=== PATIENT | female | born 1935 | race Caucasian/White ===

== ENCOUNTER 2020-09-16 11:33 | Inpatient (IN) | payer MEDICARE, OTHER ==
[~2020-09-16] VITALS: Ht 175.3 cm; Wt 93.6 kg
[2020-09-16] VITALS (13 sets, daily range): BP systolic 113–142; BP diastolic 41–77
[2020-09-16 12:40] LABS: BASOPHILS # (AUTO) 0.1 X10'3 (0-0.2); EOSINOPHILS % (AUTO) 0.3 % (0-6); LYMPHOCYTES # (AUTO) 0.9 X10'3 (1.1-4.8); LYMPHOCYTES % (AUTO) 13.7 % (21-51); MEAN CORPUSCULAR HEMOGLOBIN 25.5 PG (27.0-31.0); MEAN CORPUSCULAR HGB CONC 31.6 g/dL (33.0-36.5); MEAN CORPUSCULAR VOLUME 80.8 FL (78-98); MEAN PLATELET VOLUME 9.4 FL (7.4-10.4); MONOCYTES # (AUTO) 0.4 X10'3 (0-0.9); MONOCYTES % (AUTO) 6.7 % (2-12); NEUTROPHILS % (AUTO) 78.3 % (42-75); PLATELET COUNT 203 X10'3 (140-440); RED BLOOD COUNT 2.71 X10'6 (4.20-5.60); RED CELL DISTRIBUTION WIDTH 17.5 % (11.5-14.5); WHITE BLOOD COUNT 6.4 X10'3 (4.5-11.0)
[2020-09-16 12:48] LABS: HEMATOCRIT 21.9 % (35.0-45.0); HEMOGLOBIN 6.9 g/dl (12.0-16.0)
[2020-09-16 12:49] LABS: ALANINE AMINOTRANSFERASE 17 U/L (12-78); ALBUMIN 3.4 G/DL (3.4-5.0); ALBUMIN/GLOBULIN RATIO 0.9 (1.1-1.5); ALKALINE PHOSPHATASE 83 IU/L (46-116); ANION GAP 10 (8-16); ASPARTATE AMINO TRANSFERASE 14 U/L (10-37); BILIRUBIN,TOTAL 0.6 MG/DL (0.1-1.0); BLOOD UREA NITROGEN 31 MG/DL (7-18); BUN/CREATININE RATIO 23.8 (6.6-38.0); CALCIUM 9.1 MG/DL (8.5-10.1); CHLORIDE 103 MMOL/L (99-107); GLUCOSE 125 MG/DL (70-104); POTASSIUM 4.2 MMOL/L (3.5-5.1); SODIUM 138 MMOL/L (135-145); TOTAL CARBON DIOXIDE 25.4 MMOL/L (24-32); eGFR 39 ML/MIN
[2020-09-16] MEDS ORDERED: normal saline 1000ML IV soln IVB ONE (12:55)
[2020-09-16] MEDS ORDERED: pantoprazole 40 MG vial IV ONE (12:55)
[2020-09-16] MEDS ORDERED: pantoprazole 40MG/NS 100ML BAG 100 ML IV ONE (12:55)
[2020-09-16] MEDS ORDERED: magnesium 2GM in 50ml NS 50 ML IV PRN (13:20)
[2020-09-16] MEDS ORDERED: mag hydrox/Alum hydrox/simeth 30ml oral suspension PO PRN (13:20)
[2020-09-16] MEDS ORDERED: potassium Cl 20 mEq SR tablet PO PRN ×2 (13:20)
[2020-09-16] MEDS ORDERED: ondansetron/PF 4mg/2ml inj IV PRN (13:20)
[2020-09-16] MEDS ORDERED: potassium Cl 40MEQ/1/2NS 520ml 520 ML IV PRN ×2 (13:20)
[2020-09-16] MEDS ORDERED: acetaminophen 325mg tablet PO PRN (13:20)
[2020-09-16] MEDS ORDERED: PERFLUTREN PROTEIN-A MICROSPHR (Optison) 0.22 MG/ML 3ML VIAL IV ONE (13:20)
[2020-09-16] MEDS ORDERED: magnesium 4gm in 100ml NS 100 ML IV PRN (13:20)
[2020-09-16] MEDS ORDERED: RIVA20TA PO (13:47)
[2020-09-16] MEDS ORDERED: [UNRECOGNIZED DRUG - CODE] PO (13:47)
[2020-09-16] MEDS ORDERED: CALC600T35 PO (13:47)
[2020-09-16] MEDS ORDERED: DILT90TA22 PO (13:47)
[2020-09-16] MEDS ORDERED: ATOR20TA PO (13:47)
[2020-09-16] MEDS ORDERED: CHOL100062 PO (13:47)
[2020-09-16] MEDS ORDERED: LISI20TA28 PO (13:47)
[2020-09-16] MEDS ORDERED: OMEP40CA21 PO (13:47)
--- NOTE | 2020-09-16 15:12 | NUR ---
PATIENT AT THIS TIME ARRIVED FROM ER, PATIENT [id number] STABLE NO SIGNS OF DISTRESS 2L NC ON SAT AT 100%, PATIENT ALSO HAS BILATERAL HEARING AIDS, NO OTHE RNEEDS AT THIS TIME.
--- NOTE | 2020-09-16 15:41 | NUR ---
PAGER ID: [phone] MESSAGE: Patient Niels Schulz new admit in room 316 in [place] needs a Blood consent to be signed so she can start getting her unit of bloods , Caridad COLÓN
[2020-09-16] MEDS ORDERED: LISI-790 PO (16:07)
--- NOTE | 2020-09-16 18:18 | NUR ---
REPORT GIVEN TO ALONSO, ALSO TRANSFERM OF BLOOD TRANSFUSION HAS PATIENT GETTING TRANSFUSED AT THIS TIME.
--- NOTE | 2020-09-16 18:30 | NUR ---
Patient in room MED 316. I have received report from MARY COLÓN and had the opportunity to ask questions and assume patient care.
[2020-09-16] MEDS: pantoprazole 40MG/NS 100ML BAG 100 ML IV SCH (18:56)
[2020-09-16] MEDS: K and/or MAG REPLACEMENT MC SCH (20:00)
[2020-09-16] MEDS: docusate sod 100mg capsule PO SCH (20:00)
[2020-09-16] MEDS: atorvastatin 20mg tablet PO SCH (20:13)
[2020-09-16 21:27] LABS: HEMATOCRIT 23.2 % (35.0-45.0); HEMOGLOBIN 7.5 g/dl (12.0-16.0); MEAN CORPUSCULAR HEMOGLOBIN 26.8 PG (27.0-31.0); MEAN CORPUSCULAR HGB CONC 32.4 g/dL (33.0-36.5); MEAN CORPUSCULAR VOLUME 82.7 FL (78-98); MEAN PLATELET VOLUME 9.5 FL (7.4-10.4); PLATELET COUNT 156 X10'3 (140-440); RED CELL DISTRIBUTION WIDTH 18.1 % (11.5-14.5); WHITE BLOOD COUNT 5.6 X10'3 (4.5-11.0)
[2020-09-17] VITALS (15 sets, daily range): BP systolic 112–150; BP diastolic 54–86
[2020-09-17] MEDS: pantoprazole 40MG/NS 100ML BAG 100 ML IV SCH ×3 (00:29→22:20)
--- NOTE | 2020-09-17 02:16 | NUR ---
IV INFILTRATED, NEEDED TO REESTABLISH ACCESS-NEW IV STARTED NOW LEFT FOREARM, RESUMING BLOOD TRANSFUSION. ALEX COLÓN
--- NOTE | 2020-09-17 06:04 | NUR ---
Problems reprioritized. Patient report given, questions answered & plan of care reviewed with MAXI COLÓN.
[2020-09-17 06:14] LABS: HEMATOCRIT 23.7 % (35.0-45.0); HEMOGLOBIN 7.8 g/dl (12.0-16.0); MEAN CORPUSCULAR HEMOGLOBIN 26.9 PG (27.0-31.0); MEAN CORPUSCULAR HGB CONC 32.8 g/dL (33.0-36.5); MEAN PLATELET VOLUME 9.3 FL (7.4-10.4); PLATELET COUNT 137 X10'3 (140-440); RED BLOOD COUNT 2.89 X10'6 (4.20-5.60); RED CELL DISTRIBUTION WIDTH 17.5 % (11.5-14.5); WHITE BLOOD COUNT 5.4 X10'3 (4.5-11.0)
--- NOTE | 2020-09-17 06:30 | NUR ---
Patient in room MED 316. I have received report from KATARZYNA GUPTA and had the opportunity to ask questions and assume patient care.
[2020-09-17 06:46] LABS: ALANINE AMINOTRANSFERASE 13 U/L (12-78); ALBUMIN 2.8 G/DL (3.4-5.0); ALBUMIN/GLOBULIN RATIO 0.9 (1.1-1.5); ALKALINE PHOSPHATASE 68 IU/L (46-116); ANION GAP 9 (8-16); ASPARTATE AMINO TRANSFERASE 17 U/L (10-37); BLOOD UREA NITROGEN 23 MG/DL (7-18); BUN/CREATININE RATIO 19.7 (6.6-38.0); CALCIUM 8.2 MG/DL (8.5-10.1); CHLORIDE 106 MMOL/L (99-107); CREATININE 1.17 MG/DL (0.40-0.90); GLUCOSE 96 MG/DL (70-104); MAGNESIUM 1.3 MG/DL (1.5-2.4); POTASSIUM 4.1 MMOL/L (3.5-5.1); SODIUM 141 MMOL/L (135-145); TOTAL CARBON DIOXIDE 25.6 MMOL/L (24-32); TOTAL PROTEIN 5.8 G/DL (6.4-8.2); eGFR 44 ML/MIN
[2020-09-17] MEDS ORDERED: fentaNYL/PF 50MCG/1 ML 2ML syringe ONE (08:00)
[2020-09-17] MEDS: K and/or MAG REPLACEMENT MC SCH ×2 (08:00→20:00)
[2020-09-17] MEDS ORDERED: LIDOcaine Viscous 15ml cup ONE (08:00)
[2020-09-17] MEDS: calcium carbonate 500mg chew tablet PO SCH (08:00)
[2020-09-17] MEDS ORDERED: MIDAZolam 1 MG/ML 5ML VIAL ONE (08:00)
[2020-09-17 12:10] LABS: HEMATOCRIT 25.6 % (35.0-45.0); HEMOGLOBIN 8.2 g/dl (12.0-16.0); MEAN CORPUSCULAR HEMOGLOBIN 26.4 PG (27.0-31.0); MEAN CORPUSCULAR HGB CONC 32.1 g/dL (33.0-36.5); MEAN CORPUSCULAR VOLUME 82.5 FL (78-98); MEAN PLATELET VOLUME 9.5 FL (7.4-10.4); PLATELET COUNT 148 X10'3 (140-440); RED BLOOD COUNT 3.11 X10'6 (4.20-5.60); RED CELL DISTRIBUTION WIDTH 17.7 % (11.5-14.5); WHITE BLOOD COUNT 6.2 X10'3 (4.5-11.0)
[2020-09-17] MEDS: cholecalciferol (vitamin D3) 1,000 unit (25mcg) tablet PO SCH (14:04)
[2020-09-17] MEDS: docusate sod 100mg capsule PO SCH ×2 (14:04→20:27)
[2020-09-17] MEDS: lisinopril 5mg tablet PO SCH (14:04)
[2020-09-17] MEDS: diltiazem CD 180mg cap (once-daily) PO SCH (14:05)
--- NOTE | 2020-09-17 18:15 | NUR ---
Problems reprioritized. Patient report given, questions answered & plan of care reviewed with kimberlee whipple.
--- NOTE | 2020-09-17 18:17 | NUR ---
Patient in room MED 316. I have received report from Cristy mohan and had the opportunity to ask questions and assume patient care.
[2020-09-17 20:15] LABS: HEMATOCRIT 28.5 % (35.0-45.0); HEMOGLOBIN 9.2 g/dl (12.0-16.0); MEAN CORPUSCULAR HEMOGLOBIN 27.1 PG (27.0-31.0); MEAN CORPUSCULAR HGB CONC 32.4 g/dL (33.0-36.5); MEAN CORPUSCULAR VOLUME 83.8 FL (78-98); MEAN PLATELET VOLUME 9.1 FL (7.4-10.4); PLATELET COUNT 189 X10'3 (140-440); RED CELL DISTRIBUTION WIDTH 18.4 % (11.5-14.5); WHITE BLOOD COUNT 7.9 X10'3 (4.5-11.0)
[2020-09-17] MEDS: atorvastatin 20mg tablet PO SCH (20:27)
[2020-09-18 02:00] VITALS: BP 108/51
[2020-09-18] MEDS: pantoprazole 40MG/NS 100ML BAG 100 ML IV SCH (04:21)
[2020-09-18 06:00] VITALS: BP 116/52
--- NOTE | 2020-09-18 06:05 | NUR ---
Problems reprioritized. Patient report given, questions answered & plan of care reviewed with MAXI COLÓN.
--- NOTE | 2020-09-18 06:20 | NUR ---
Patient in room MED 316. I have received report from kimberlee whipple and had the opportunity to ask questions and assume patient care.
[2020-09-18 06:52] LABS: HEMATOCRIT 24.8 % (35.0-45.0); HEMOGLOBIN 7.9 g/dl (12.0-16.0); MEAN CORPUSCULAR HEMOGLOBIN 26.5 PG (27.0-31.0); MEAN CORPUSCULAR HGB CONC 31.9 g/dL (33.0-36.5); MEAN CORPUSCULAR VOLUME 82.8 FL (78-98); MEAN PLATELET VOLUME 9.3 FL (7.4-10.4); PLATELET COUNT 162 X10'3 (140-440); RED BLOOD COUNT 2.99 X10'6 (4.20-5.60); RED CELL DISTRIBUTION WIDTH 18.1 % (11.5-14.5); WHITE BLOOD COUNT 6.1 X10'3 (4.5-11.0)
[2020-09-18 07:20] LABS: ALANINE AMINOTRANSFERASE 18 U/L (12-78); ALBUMIN 2.8 G/DL (3.4-5.0); ALBUMIN/GLOBULIN RATIO 0.9 (1.1-1.5); ALKALINE PHOSPHATASE 71 IU/L (46-116); ANION GAP 8 (8-16); ASPARTATE AMINO TRANSFERASE 21 U/L (10-37); BILIRUBIN,TOTAL 1.1 MG/DL (0.1-1.0); BLOOD UREA NITROGEN 15 MG/DL (7-18); BUN/CREATININE RATIO 12.5 (6.6-38.0); CALCIUM 7.7 MG/DL (8.5-10.1); CHLORIDE 106 MMOL/L (99-107); GLUCOSE 96 MG/DL (70-104); MAGNESIUM 2.4 MG/DL (1.5-2.4); POTASSIUM 4.3 MMOL/L (3.5-5.1); SODIUM 139 MMOL/L (135-145); TOTAL CARBON DIOXIDE 25.4 MMOL/L (24-32); eGFR 43 ML/MIN
[2020-09-18] MEDS: diltiazem CD 180mg cap (once-daily) PO SCH (08:56)
[2020-09-18] MEDS: docusate sod 100mg capsule PO SCH (08:56)
[2020-09-18] MEDS: cholecalciferol (vitamin D3) 1,000 unit (25mcg) tablet PO SCH (08:56)
[2020-09-18] MEDS: lisinopril 5mg tablet PO SCH (08:57)
[2020-09-18] MEDS: calcium carbonate 500mg chew tablet PO SCH (08:57)
[2020-09-18] MEDS: K and/or MAG REPLACEMENT MC SCH (08:58)
[2020-09-18 10:28] LABS: HEMATOCRIT 26.5 % (35.0-45.0); HEMOGLOBIN 8.5 g/dl (12.0-16.0); MEAN CORPUSCULAR HEMOGLOBIN 26.7 PG (27.0-31.0); MEAN CORPUSCULAR HGB CONC 32.3 g/dL (33.0-36.5); MEAN CORPUSCULAR VOLUME 82.9 FL (78-98); MEAN PLATELET VOLUME 9.2 FL (7.4-10.4); PLATELET COUNT 179 X10'3 (140-440); RED BLOOD COUNT 3.19 X10'6 (4.20-5.60); RED CELL DISTRIBUTION WIDTH 18.4 % (11.5-14.5)
[2020-09-18 11:00] VITALS: BP 100/45
[2020-09-18] MEDS ORDERED: OMEP40CA21 PO (11:24)
[2020-09-18 15:00] VITALS: BP 108/60
--- NOTE | 2020-09-18 16:15 | NUR ---
reviewed all discharge instructions with pt and daughter, including CBC in 2 days, and again weekly, ` f/u with dr. rao, stop taking xaralto if any rectal bleeding, s.l dc'd from [facility],site clear, pt dc'd via wheelchair,with all belongings
== END 2020-09-18 15:20 | disposition home or self-care (01) | DRG 378 ==
LOC: ER 11:33 → ED HOLD 13:16 → MED 3N 14:25
PROVIDERS: ADMIT Family Medicine; ATTEND Family Medicine
PROC: 30233N1 Transfusion of Nonautologous Red Blood Cells into Peripheral Vein, Percutaneous Approach (ICD-10-PCS; 2020-09-16)
PROC: 0DB68ZX Excision of Stomach, Via Natural or Artificial Opening Endoscopic, Diagnostic (ICD-10-PCS; principal; 2020-09-17)
DX: K29.71 Gastritis, unspecified, with bleeding (principal); I48.20 Chronic atrial fibrillation, unspecified; N17.9 Acute kidney failure, unspecified; K57.11 Diverticulosis of small intestine without perforation or abscess with bleeding; D64.9 Anemia, unspecified; R19.5 Other fecal abnormalities; E78.5 Hyperlipidemia, unspecified; I07.1 Rheumatic tricuspid insufficiency; Z96.651 Presence of right artificial knee joint; I12.9 Hypertensive chronic kidney disease with stage 1 through stage 4 chronic kidney disease, or unspecified chronic kidney disease; K31.7 Polyp of stomach and duodenum; N18.9 Chronic kidney disease, unspecified; J44.9 Chronic obstructive pulmonary disease, unspecified; Z83.3 Family history of diabetes mellitus; Z79.01 Long term (current) use of anticoagulants; Z87.11 Personal history of peptic ulcer disease; Z87.891 Personal history of nicotine dependence; Z95.3 Presence of xenogenic heart valve; Z88.8 Allergy status to other drugs, medicaments and biological substances; Z88.5 Allergy status to narcotic agent; Z79.899 Other long term (current) drug therapy; Z98.42 Cataract extraction status, left eye; Z98.41 Cataract extraction status, right eye; Z82.49 Family history of ischemic heart disease and other diseases of the circulatory system
CPT/HCPCS: 36415; 36430; 43239; 71045; 80053; 83735; 83880; 84484; 85025; 85027; 86885; 86900; 86901; 86920; 93005; 93306; 96375; 97116; 97162; 97530; 99152; 99285; A4620; C9113; G0378; J2250; J3010; J3475; J7030; J7040; P9016

== ENCOUNTER 2021-03-12 17:13 | Observation (INO) | payer MEDICARE, OTHER ==
[~2021-03-12] VITALS: Ht 175.3 cm; Wt 87.7 kg
[~2021-03-12 17:13] MED LIST: ATOR20TA PO; DILT180C66 PO; FERR325T29 PO; LISI5TAB22 PO; PANT-47 PO; QUELT PO; SUCR1TAB34 PO
[2021-03-12] MEDS ORDERED: methylPREDNISolone sod succ 125mg/2ml vial IV ONE (17:20)
[2021-03-12] MEDS ORDERED: diphenhydrAMINE 50 mg/ml inj IV ONE (17:20)
[2021-03-12] MEDS ORDERED: dexamethasone sod phosphate 10mg/ml inj IV STA (17:20)
[2021-03-12] MEDS ORDERED: epiNEPHrine 1 mg/ml inj SQ ONE (17:20)
[2021-03-12] MEDS ORDERED: famotidine/PF 10 mg/ml inj IV ONE (17:20)
[2021-03-12] MEDS ORDERED: racepinephrine 11.25mg/0.5ml nebule IH ONE (17:40)
--- NOTE | 2021-03-12 17:54 | NUR ---
PATIENT SITTING UP IN BED, TALKING ON PHONE, RT AT BEDSIDE TO ADMINISTER BREATHING TREATMENT PER MD ORDER.
--- NOTE | 2021-03-12 18:44 | NUR ---
PATIENT SITTING UP IN BED, A/O X4, TALKING AND CALM AT THIS TIME.
[2021-03-12] MEDS ORDERED: ondansetron/PF 4mg/2ml inj IV PRN (20:30)
[2021-03-12] MEDS ORDERED: CALC-729 PO (20:30)
[2021-03-12] MEDS ORDERED: MV-M1TAB19 PO (20:32)
[2021-03-12] MEDS ORDERED: MELA5TAB12 PO (20:33)
[2021-03-12] MEDS ORDERED: LUTE1CAP4 PO (20:35)
[2021-03-12] MEDS ORDERED: ASCO500T19 PO (20:37)
[2021-03-12] MEDS ORDERED: VITA400T10 PO (20:37)
[2021-03-12] MEDS ORDERED: PANT40TA54 PO (20:47)
[2021-03-12] MEDS ORDERED: SUCR1TAB PO (20:47)
[2021-03-12 20:53] LABS: BASOPHILS % (AUTO) 0.4 % (0-1); EOSINOPHILS % (AUTO) 0 % (0-6); HEMATOCRIT 39.9 % (35.0-45.0); LYMPHOCYTES # (AUTO) 0.3 X10'3 (1.1-4.8); LYMPHOCYTES % (AUTO) 2.4 % (21-51); MEAN CORPUSCULAR HEMOGLOBIN 29.9 PG (27.0-31.0); MEAN CORPUSCULAR HGB CONC 32.6 g/dL (33.0-36.5); MEAN CORPUSCULAR VOLUME 91.8 FL (78-98); MEAN PLATELET VOLUME 8.6 FL (7.4-10.4); MONOCYTES % (AUTO) 0.4 % (2-12); NEUTROPHILS # (AUTO) 10.6 X10'3 (1.8-7.7); NEUTROPHILS % (AUTO) 96.8 % (42-75); PLATELET COUNT 192 X10'3 (140-440); RED BLOOD COUNT 4.35 X10'6 (4.20-5.60); RED CELL DISTRIBUTION WIDTH 15.9 % (11.5-14.5); WHITE BLOOD COUNT 10.9 X10'3 (4.5-11.0)
[2021-03-12] MEDS ORDERED: Melatonin 3mg tablet PO SCH (21:00)
[2021-03-12 21:11] LABS: ALANINE AMINOTRANSFERASE 20 U/L (12-78); ALBUMIN 3.7 G/DL (3.4-5.0); ALBUMIN/GLOBULIN RATIO 0.9 (1.1-1.5); ALKALINE PHOSPHATASE 110 IU/L (46-116); ANION GAP 15 (8-16); ASPARTATE AMINO TRANSFERASE 24 U/L (10-37); BILIRUBIN,TOTAL 1.1 MG/DL (0.1-1.0); BLOOD UREA NITROGEN 25 MG/DL (7-18); BUN/CREATININE RATIO 20.8 (6.6-38.0); CALCIUM 9.9 MG/DL (8.5-10.1); CHLORIDE 102 MMOL/L (99-107); GLUCOSE 162 MG/DL (70-104); POTASSIUM 3.9 MMOL/L (3.5-5.1); SODIUM 140 MMOL/L (135-145); TOTAL CARBON DIOXIDE 23.1 MMOL/L (24-32); TOTAL PROTEIN 7.7 G/DL (6.4-8.2); eGFR 43 ML/MIN
[2021-03-12] MEDS: diphenhydrAMINE 25mg capsule PO SCH (23:31)
[2021-03-13 00:58] LABS: BASOPHILS % (AUTO) 0.1 % (0-1); EOSINOPHILS % (AUTO) 0 % (0-6); HEMATOCRIT 39.1 % (35.0-45.0); HEMOGLOBIN 12.8 g/dl (12.0-16.0); LYMPHOCYTES # (AUTO) 0.3 X10'3 (1.1-4.8); LYMPHOCYTES % (AUTO) 3.8 % (21-51); MEAN CORPUSCULAR HGB CONC 32.7 g/dL (33.0-36.5); MEAN CORPUSCULAR VOLUME 91.8 FL (78-98); MEAN PLATELET VOLUME 8.7 FL (7.4-10.4); MONOCYTES % (AUTO) 0.6 % (2-12); NEUTROPHILS # (AUTO) 7.6 X10'3 (1.8-7.7); NEUTROPHILS % (AUTO) 95.5 % (42-75); PLATELET COUNT 193 X10'3 (140-440); RED BLOOD COUNT 4.26 X10'6 (4.20-5.60); RED CELL DISTRIBUTION WIDTH 16.2 % (11.5-14.5); WHITE BLOOD COUNT 7.9 X10'3 (4.5-11.0)
[2021-03-13 01:13] LABS: ALBUMIN 3.6 G/DL (3.4-5.0); ALBUMIN/GLOBULIN RATIO 0.9 (1.1-1.5); ANION GAP 9 (8-16); BILIRUBIN,TOTAL 1.1 MG/DL (0.1-1.0); BLOOD UREA NITROGEN 24 MG/DL (7-18); BUN/CREATININE RATIO 22.4 (6.6-38.0); CALCIUM 9.7 MG/DL (8.5-10.1); CHLORIDE 102 MMOL/L (99-107); CREATININE 1.07 MG/DL (0.40-0.90); GLUCOSE 167 MG/DL (70-104); POTASSIUM 4.3 MMOL/L (3.5-5.1); SODIUM 137 MMOL/L (135-145); TOTAL CARBON DIOXIDE 26.1 MMOL/L (24-32); TOTAL PROTEIN 7.6 G/DL (6.4-8.2); eGFR 49 ML/MIN
[2021-03-13 01:14] LABS: ALANINE AMINOTRANSFERASE 24 U/L (12-78); ALKALINE PHOSPHATASE 108 IU/L (46-116); ASPARTATE AMINO TRANSFERASE 21 U/L (10-37)
[2021-03-13] MEDS ORDERED: diphenhydrAMINE 25mg capsule PO SCH (02:00)
[2021-03-13] MEDS: diphenhydrAMINE 25mg capsule PO SCH ×2 (06:39→07:23)
--- NOTE | 2021-03-13 06:53 | NUR ---
Patient in room ED 4. I have received report from ER Nurse and had the opportunity to ask questions and assume patient care.
[2021-03-13 07:41] VITALS: BP 142/87
[2021-03-13] MEDS ORDERED: methylPREDNISolone sod succ/PF 40mg inj. IV SCH (08:00)
[2021-03-13] MEDS ORDERED: non-formulary drug (Lutein/Zeaxanthin (Lutein-Zeaxanthin 25-5 Mg Sfgl) 1 EACH) PO SCH (08:00)
[2021-03-13] MEDS ORDERED: famotidine/PF 10 mg/ml inj IV SCH (08:00)
[2021-03-13] MEDS ORDERED: diltiazem CD 180mg cap (once-daily) PO SCH (08:00)
[2021-03-13] MEDS ORDERED: pantoprazole 40mg Tablet.DR PO SCH (08:00)
[2021-03-13] MEDS ORDERED: sucralfate 1 gm tablet PO SCH (08:00)
[2021-03-13] MEDS ORDERED: ferrous sulfate 325mg tablet PO SCH (08:00)
--- NOTE | 2021-03-13 10:21 | NUR ---
COVID swab completed and sent to lab
[2021-03-13 11:44] VITALS: BP 139/70
[2021-03-13] MEDS ORDERED: DIPH-423 PO (12:00)
[2021-03-13] MEDS ORDERED: PRED10TA23 PO (12:00)
[2021-03-13] MEDS ORDERED: FAMO20TA8 PO (12:00)
--- NOTE | 2021-03-13 12:50 | NUR ---
Patient discharged, was very worried about her car being towed out of the parking lot of [facility] and not willing to stay to complete her admit dart. Patient discharged, taken by to [facility]. All educations completed with verbal acknowledgement of understanding. 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 All belongings with patient and sent home. No medications in pharmacy from home. IVs were discontinued.
== END 2021-03-13 13:00 | disposition home or self-care (01) ==
LOC: ER 17:14 → ED HOLD 20:34 → MED 3N 03-13 07:00
PROVIDERS: ADMIT Internal Medicine; ATTEND Family Medicine
DX: T78.3XXA Angioneurotic edema, initial encounter (principal); Z20.822 Contact with and (suspected) exposure to COVID-19; I48.91 Unspecified atrial fibrillation; I12.9 Hypertensive chronic kidney disease with stage 1 through stage 4 chronic kidney disease, or unspecified chronic kidney disease; N18.9 Chronic kidney disease, unspecified; E78.00 Pure hypercholesterolemia, unspecified; Z90.710 Acquired absence of both cervix and uterus; Z79.899 Other long term (current) drug therapy
CPT/HCPCS: 36415; 71045; 80053; 85025; 87635; 94640; 94760; 96372; 96374; 96375; 96376; 99291; G0378; J0171; J1100; J2920; J2930; J3490; Q0163

== ENCOUNTER 2021-03-14 09:53 | Outpatient (CLI) | payer MEDICARE, OTHER ==
[~2021-03-14] VITALS: Ht 175.3 cm; Wt 87.1 kg
[~2021-03-14 09:53] MED LIST changes: +ASCO500T19 PO; +CALC-729 PO; +DIPH-423 PO; +FAMO20TA8 PO; -LISI5TAB22 PO; +LUTE1CAP4 PO; +MELA5TAB12 PO; -PANT-47 PO; +PANT40TA54 PO; +PRED10TA23 PO; -QUELT PO; +SUCR1TAB PO; -SUCR1TAB34 PO; +VITA400T10 PO
[2021-03-14] MEDS ORDERED: IODIXANOL 320 MG/ML INFUS..BTL 100ML IV ONE (10:49)
[2021-03-14] MEDS ORDERED: IODIXANOL 320 MG/ML INFUS..BTL 50ML IV ONE (10:49)
[2021-03-14] MEDS ORDERED: albuterol 2.5 MG/3 ML nebule NEB ONE (11:55)
[2021-03-14 13:00] LABS: ABG BASE EXCESS 1.2 mmol/L (-2.0-2.0); ABG HCO3 21.5 mmol/L (22.0-26.0); ABG OXYGEN SATURATION 97.7 % (94-97); ALLEN'S TEST POSITIVE; FCOHb 1.8 % (0.0-3.9); FO2Hb 95.9 % (94-97)
== END 2021-03-14 23:59 | disposition home or self-care (01) ==
LOC: RAD 09:53
PROVIDERS: ATTEND Internal Medicine Cardiovascular Disease
DX: K42.9 Umbilical hernia without obstruction or gangrene (principal); M51.36 Other intervertebral disc degeneration, lumbar region; M47.816 Spondylosis without myelopathy or radiculopathy, lumbar region; I70.8 Atherosclerosis of other arteries; I70.203 Unspecified atherosclerosis of native arteries of extremities, bilateral legs; M48.54XA Collapsed vertebra, not elsewhere classified, thoracic region, initial encounter for fracture; R91.1 Solitary pulmonary nodule; K44.9 Diaphragmatic hernia without obstruction or gangrene; M41.85 Other forms of scoliosis, thoracolumbar region; I70.0 Atherosclerosis of aorta; J43.2 Centrilobular emphysema; I25.10 Atherosclerotic heart disease of native coronary artery without angina pectoris; I51.7 Cardiomegaly; Z95.818 Presence of other cardiac implants and grafts
CPT/HCPCS: 36600; 71046; 71275; 74174; 82803; 85018; 94060; 94727; 94729; 94760; Q9967

== ENCOUNTER 2021-10-31 07:35 | Day surgery (SDC) | payer MEDICARE, OTHER ==
[~2021-10-31] VITALS: Ht 172.7 cm; Wt 90.1 kg
[~2021-10-31 07:35] MED LIST changes: -PRED10TA23 PO
[2021-10-31 07:54] VITALS: BP 137/72
[2021-10-31] MEDS ORDERED: LIDOcaine 1% 30ml preserv. free vial SQ STA (08:01)
[2021-10-31] MEDS ORDERED: albumin 25% 100mL bottle x 1 IV PRN (08:10)
[2021-10-31 08:51] VITALS: BP 124/67
[2021-10-31 09:06] VITALS: BP 113/73
[2021-10-31 09:20] VITALS: BP 123/67
[2021-10-31 09:36] VITALS: BP 137/57
[2021-10-31 09:46] VITALS: BP 124/73
[2021-10-31 09:51] LABS: GLUCOSE,BODY FLUID 100 MG/DL
[2021-10-31 09:52] LABS: LDH,BODY FLUID 95 U/L; TOTAL PROTEIN,BODY FLUID 3.2 G/DL
[2021-10-31 09:58] LABS: BFAPPEAR HAZY; BFCOLOR AMBER; BFVOLUME 60 ML
[2021-10-31 09:59] LABS: BF RBC COUNT 5750 /CU MM; BF WBC COUNT 500 /CU MM (0-1000)
[2021-10-31 11:52] LABS: BF MESOTHELIAL CELLS MODERATE; LYMPHOCYTES,BODY FLUID 52 %; MONOCYTES,BODY FLUID 43 %; NEUTROPHILS,BODY FLUID 5 %
== END 2021-10-31 10:00 | disposition home or self-care (01) ==
LOC: SSTAY O 07:35
PROVIDERS: ATTEND Radiology Vascular & Interventional Radiology
DX: R18.8 Other ascites (principal); I48.91 Unspecified atrial fibrillation; D64.9 Anemia, unspecified; Z90.710 Acquired absence of both cervix and uterus; Z88.8 Allergy status to other drugs, medicaments and biological substances; Z88.6 Allergy status to analgesic agent; Z79.899 Other long term (current) drug therapy; Z82.49 Family history of ischemic heart disease and other diseases of the circulatory system; Z83.3 Family history of diabetes mellitus; Z98.890 Other specified postprocedural states
CPT/HCPCS: 49083; 82945; 83615; 84157; 87070; 89051; J3490; A6258

== ENCOUNTER 2022-01-20 17:25 | Emergency (ER) | payer MEDICARE, OTHER ==
[~2022-01-20] VITALS: Ht 175.3 cm; Wt 72.0 kg
[~2022-01-20 17:25] MED LIST changes: +ASCO500C18 PO; -ASCO500T19 PO; -ATOR20TA PO; +ATOR20TA66 PO; +CHOL400T32 PO; +CIPR250T4 PO; -DILT180C66 PO; -DIPH-423 PO; -FAMO20TA8 PO; -FERR325T29 PO; +FURO40TA4 PO; +LACT10SO32 PO; -MELA5TAB12 PO; +METO-411 PO; +POTA-206 PO; +SPIR50TA5 PO; -SUCR1TAB PO; -VITA400T10 PO
[2022-01-20 17:59] LABS: BASOPHILS % (AUTO) 0.8 % (0-1); EOSINOPHILS % (AUTO) 0.9 % (0-6); HEMOGLOBIN 12.5 g/dl (12.0-16.0); LYMPHOCYTES # (AUTO) 0.5 X10'3 (1.1-4.8); LYMPHOCYTES % (AUTO) 10.7 % (21-51); MEAN CORPUSCULAR HEMOGLOBIN 30.5 PG (27.0-31.0); MEAN CORPUSCULAR VOLUME 92.3 FL (78-98); MONOCYTES # (AUTO) 0.5 X10'3 (0-0.9); MONOCYTES % (AUTO) 10.9 % (2-12); NEUTROPHILS # (AUTO) 3.8 X10'3 (1.8-7.7); NEUTROPHILS % (AUTO) 76.7 % (42-75); PLATELET COUNT 156 X10'3 (140-440); RED BLOOD COUNT 4.12 X10'6 (4.20-5.60); RED CELL DISTRIBUTION WIDTH 17.1 % (11.5-14.5)
[2022-01-20 18:15] LABS: ALANINE AMINOTRANSFERASE 11 U/L (12-78); ALBUMIN 3.2 G/DL (3.4-5.0); ALBUMIN/GLOBULIN RATIO 0.7 (1.1-1.5); ALKALINE PHOSPHATASE 98 IU/L (46-116); ANION GAP 8 (8-16); ASPARTATE AMINO TRANSFERASE 24 U/L (10-37); BILIRUBIN,TOTAL 2.1 MG/DL (0.1-1.0); BLOOD UREA NITROGEN 31 MG/DL (7-18); BUN/CREATININE RATIO 21.7 (6.6-38.0); CALCIUM 9.4 MG/DL (8.5-10.1); CHLORIDE 101 MMOL/L (99-107); CREATININE 1.43 MG/DL (0.40-0.90); GLUCOSE 118 MG/DL (70-104); SODIUM 138 MMOL/L (135-145); TOTAL CARBON DIOXIDE 29.2 MMOL/L (24-32); TOTAL PROTEIN 7.7 G/DL (6.4-8.2); eGFR 35 ML/MIN
[2022-01-20] MEDS ORDERED: TETanus/Pertussis (Acell)/Diphther VAC/PF (Tdap-Adult) 0.5ml syringe IMVAC ONE (19:55)
[2022-01-20 20:11] VITALS: BP 104/54
== END 2022-01-20 20:13 | disposition home or self-care (01) ==
LOC: ER 17:26
DX: S01.81XA Laceration without foreign body of other part of head, initial encounter (principal); S41.012A Laceration without foreign body of left shoulder, initial encounter; R55 Syncope and collapse; W18.39XA Other fall on same level, initial encounter; Y93.89 Activity, other specified; Y92.89 Other specified places as the place of occurrence of the external cause; Y99.8 Other external cause status
CPT/HCPCS: 12005; 12011; 36415; 70450; 71045; 72125; 80053; 83880; 84484; 85025; 90471; 90715; 93005; 99285; J7030; 12002; 12004; A6212; A6213

== ENCOUNTER 2022-04-06 18:03 | Inpatient (IN) | payer MEDICARE, OTHER ==
[~2022-04-06] VITALS: Ht 170.2 cm; Wt 79.5 kg
[~2022-04-06 18:03] MED LIST changes: +ASPI-611 PO; +CARV3.12 PO; -CIPR250T4 PO; -LACT10SO32 PO; -POTA-206 PO; +POTA-207 PO; -SPIR50TA5 PO
[2022-04-06] MEDS ORDERED: dextrose 5%-1/4 NS 250ml IV soln IV ONE (18:30)
[2022-04-06 19:13] LABS: BASOPHILS % (AUTO) 0.6 % (0-1); EOSINOPHILS % (AUTO) 0.2 % (0-6); LYMPHOCYTES # (AUTO) 0.6 X10'3 (1.1-4.8); NEUTROPHILS % (AUTO) 79.7 % (42-75); WHITE BLOOD COUNT 6.8 X10'3 (4.5-11.0)
[2022-04-06 19:15] LABS: LYMPHOCYTES % (AUTO) 8.5 % (21-51); MEAN PLATELET VOLUME 10.4 FL (7.4-10.4); MONOCYTES # (AUTO) 0.7 X10'3 (0-0.9); NEUTROPHILS # (AUTO) 5.4 X10'3 (1.8-7.7); PLATELET COUNT 155 X10'3 (140-440)
[2022-04-06 19:26] LABS: ALANINE AMINOTRANSFERASE 18 U/L (12-78); ALKALINE PHOSPHATASE 100 IU/L (46-116); ANION GAP 10 (8-16); ASPARTATE AMINO TRANSFERASE 41 U/L (10-37); BILIRUBIN,TOTAL 3.8 MG/DL (0.1-1.0); BLOOD UREA NITROGEN 69 MG/DL (7-18); BUN/CREATININE RATIO 19.3 (6.6-38.0); CALCIUM 9.4 MG/DL (8.5-10.1); CHLORIDE 95 MMOL/L (99-107); CREATININE 3.57 MG/DL (0.40-0.90); GLUCOSE 100 MG/DL (70-104); SODIUM 133 MMOL/L (135-145); eGFR 12 ML/MIN
[2022-04-06 19:30] LABS: ALBUMIN/GLOBULIN RATIO 0.7 (1.1-1.5); TOTAL PROTEIN 7.1 G/DL (6.4-8.2)
[2022-04-06 19:36] LABS: HEMATOCRIT 40.6 % (35.0-45.0); MEAN CORPUSCULAR VOLUME 84.6 FL (78-98); RED CELL DISTRIBUTION WIDTH 17.8 % (11.5-14.5)
[2022-04-06] MEDS ORDERED: normal saline 1000ML IV soln IVB ONE (19:45)
[2022-04-06] MEDS ORDERED: dextrose 5%-1/4 normal saline 1,000 ML IV ONE (19:50)
--- NOTE | 2022-04-06 20:44 | NUR ---
Warming measures initiated, IV fluid warmer, and Saloni Hugger
[2022-04-06] MEDS: normal saline 1000ml 1,000 ML IV SCH (21:50)
[2022-04-06] MEDS ORDERED: acetaminophen 325mg tablet PO PRN ×2 (21:50)
[2022-04-06] MEDS ORDERED: ondansetron/PF 4mg/2ml inj IV PRN (21:50)
[2022-04-06] MEDS ORDERED: magnesium hydroxide 30ml (MOM) UD suspension PO PRN (21:50)
[2022-04-06 22:05] LABS: APTT 31 SECONDS (22-32)
[2022-04-06] MEDS: NORepinephrine 8mg/ 250ml NS 250 ML IV PRN (23:05)
[2022-04-06] MEDS ORDERED: fentaNYL/PF 50MCG/1 ML 2ML syringe IV ONE (23:15)
--- NOTE | 2022-04-06 23:17 | NUR ---
Patient complaining of back pain 10/31. Message left for book editor, Dr. Moran. One time order of Fentanyl [address] Carvajal.
[2022-04-07] VITALS (10 sets, daily range): BP systolic 89–124; BP diastolic 41–57
[2022-04-07] MEDS ORDERED: LACT10SO3 PO (02:13)
[2022-04-07] MEDS ORDERED: ACET-1025 PO (02:13)
[2022-04-07] MEDS ORDERED: morphine 2 MG/ML inj. syringe IV PRN (02:30)
[2022-04-07] MEDS ORDERED: POTA-207 PO (02:58)
[2022-04-07] MEDS ORDERED: FURO-149 PO (02:58)
[2022-04-07] MEDS ORDERED: CARV3.12 PO (02:58)
[2022-04-07] MEDS ORDERED: ASPI-1071 PO (02:58)
[2022-04-07] MEDS ORDERED: ASCO-134 PO (02:59)
--- NOTE | 2022-04-07 03:53 | NUR ---
To ICU at 0353
[2022-04-07 04:08] LABS: BASOPHILS # (AUTO) 0.1 X10'3 (0-0.2); BASOPHILS % (AUTO) 0.5 % (0-1); EOSINOPHILS % (AUTO) 0 % (0-6); HEMATOCRIT 44.8 % (35.0-45.0); HEMOGLOBIN 14.1 g/dl (12.0-16.0); LYMPHOCYTES % (AUTO) 9.8 % (21-51); MEAN CORPUSCULAR HEMOGLOBIN 27.3 PG (27.0-31.0); MEAN CORPUSCULAR HGB CONC 31.6 g/dL (33.0-36.5); MEAN CORPUSCULAR VOLUME 86.6 FL (78-98); MEAN PLATELET VOLUME 10.2 FL (7.4-10.4); MONOCYTES # (AUTO) 1.7 X10'3 (0-0.9); MONOCYTES % (AUTO) 17.2 % (2-12); NEUTROPHILS % (AUTO) 72.5 % (42-75); PLATELET COUNT 167 X10'3 (140-440); RED BLOOD COUNT 5.17 X10'6 (4.20-5.60); RED CELL DISTRIBUTION WIDTH 18.7 % (11.5-14.5); WHITE BLOOD COUNT 9.7 X10'3 (4.5-11.0)
[2022-04-07 04:10] LABS: CLARITY,URINE CLOUDY (Clear); GLUCOSE, URINE 100 mg/dl (Neg); KETONES,URINE 15 mg/dl (Neg); LEUKOCYTE ESTERASE ,URINE MODERATE (Neg); NITRITES, URINE POSITIVE (Neg); OCCULT BLOOD,URINE LARGE (Neg); PROTEIN,URINE 100 mg/dl (Neg)
[2022-04-07 04:19] LABS: UA COLLECTION TYPE FOLEY CATH
[2022-04-07 04:20] LABS: COLOR,URINE AMBER (Yellow)
[2022-04-07 04:23] LABS: BACTERIA,URINE 4+ /HPF (Neg); SQUAMOUS EPITHELIAL CELL,UR FEW /LPF (FEW); TRANSITIONAL EPI CELLS,URINE FEW /HPF; WBC CLUMPS,URINE FEW /HPF (NEGATIVE); WBC,URINE 30-50 /HPF (0-4)
[2022-04-07 04:24] LABS: ALANINE AMINOTRANSFERASE 15 U/L (12-78); ALBUMIN 2.9 G/DL (3.4-5.0); ALKALINE PHOSPHATASE 98 IU/L (46-116); ANION GAP 15 (8-16); ASPARTATE AMINO TRANSFERASE 33 U/L (10-37); BLOOD UREA NITROGEN 70 MG/DL (7-18); BUN/CREATININE RATIO 18.5 (6.6-38.0); CALCIUM 9.1 MG/DL (8.5-10.1); CHLORIDE 95 MMOL/L (99-107); CREATININE 3.79 MG/DL (0.40-0.90); GLUCOSE 91 MG/DL (70-104); MAGNESIUM 2.2 MG/DL (1.5-2.4); SODIUM 134 MMOL/L (135-145); TOTAL CARBON DIOXIDE 23.6 MMOL/L (24-32); eGFR 11 ML/MIN
[2022-04-07] MEDS: NORepinephrine 8mg/ 250ml NS 250 ML IV PRN ×2 (04:44→07:49)
[2022-04-07] MEDS: normal saline 1000ml 1,000 ML IV SCH (04:45)
--- NOTE | 2022-04-07 04:50 | NUR ---
Spoke with Dr. Moran regarding pt's pain and BP. He changed her morphine orders. Will send a lactate and TSH level. He did not want to give anymore fluid at this time given her high BP. Aware she is on 0.5mcg/kg/min of norepi with a severely stenotic AoV. He would like cardiology to see her before changing anything in terms of her BP control.
[2022-04-07 04:51] LABS: ALBUMIN/GLOBULIN RATIO 0.7 (1.1-1.5); PHOSPHORUS 6.5 MG/DL (2.3-4.5); TOTAL PROTEIN 6.8 G/DL (6.4-8.2)
[2022-04-07] MEDS: morphine 2 MG/ML inj. syringe IV PRN ×2 (05:07→10:02)
[2022-04-07 05:38] LABS: OXYGEN SATURATION (MIXED VEN) 56.2 % (60-80); PO2 MIXED VENOUS (TEMP COR) 32.4 mmHg (35-46)
--- NOTE | 2022-04-07 06:04 | NUR ---
Called Dr. Moran back with lab results. high lactate, high TSH, low mixed venous. He is going to add some antibiotic coverage because he thinks she may be in early sepsis and will order a CT of the abdomen for later in the day.
[2022-04-07] MEDS ORDERED: albumin (human) 25% 100ml IV 100 ML in dextrose 5% water 500ml 400 ML IV ONE (06:20)
[2022-04-07 07:12] LABS: LIPASE 140 U/L (73-393)
[2022-04-07] MEDS ORDERED: albumin (human) 25% 100ml IV 0 ML IV ONE (07:52)
[2022-04-07] MEDS ORDERED: heparin, porcine 5000 units/ml vial SQ SCH (08:00)
[2022-04-07] MEDS ORDERED: piperacillin/tazo 3.375gm/50ml 50 ML IV SCH (08:00)
[2022-04-07] MEDS ORDERED: famotidine 20mg tablet PO SCH (08:00)
[2022-04-07 08:41] LABS: OCCULT BLOOD STOOL NEGATIVE (Neg)
[2022-04-07] MEDS ORDERED: morphine 10mg/ml inj. IV PRN (10:25)
--- NOTE | 2022-04-07 11:01 | NUR ---
Patient placed on comfort care and at 1101. EKG strip placed in patient chart. Family was at bedside and took all belongings. [facility] was notified.
--- NOTE | 2022-04-07 11:24 | NUR ---
RN called [facility]. Ref. # [id number].
[2022-04-15 06:51] LABS: OCCULT BLOOD STOOL NEGATIVE (Neg)
== END 2022-04-07 13:15 | DRG 871 ==
LOC: ER 18:03 → ED HOLD 21:52 → CICU 2S 04-07 04:08
PROVIDERS: ADMIT Internal Medicine; ATTEND Internal Medicine
PROC: 05HY33Z Insertion of Infusion Device into Upper Vein, Percutaneous Approach (ICD-10-PCS; principal; 2022-04-06)
PROC: B54MZZA Ultrasonography of Right Upper Extremity Veins, Guidance (ICD-10-PCS; 2022-04-06)
DX: A41.9 Sepsis, unspecified organism (principal); K65.2 Spontaneous bacterial peritonitis; N18.6 End stage renal disease; R65.21 Severe sepsis with septic shock; G93.40 Encephalopathy, unspecified; I13.2 Hypertensive heart and chronic kidney disease with heart failure and with stage 5 chronic kidney disease, or end stage renal disease; I48.20 Chronic atrial fibrillation, unspecified; N17.9 Acute kidney failure, unspecified; R18.8 Other ascites; Z51.5 Encounter for palliative care; R68.0 Hypothermia, not associated with low environmental temperature; Z66 Do not resuscitate; K57.90 Diverticulosis of intestine, part unspecified, without perforation or abscess without bleeding; E78.00 Pure hypercholesterolemia, unspecified; R34 Anuria and oliguria; I50.9 Heart failure, unspecified; K72.90 Hepatic failure, unspecified without coma; K74.60 Unspecified cirrhosis of liver; Z82.49 Family history of ischemic heart disease and other diseases of the circulatory system; Z83.3 Family history of diabetes mellitus; Z88.0 Allergy status to penicillin; Z90.710 Acquired absence of both cervix and uterus; Z95.2 Presence of prosthetic heart valve; Z88.5 Allergy status to narcotic agent; Z88.8 Allergy status to other drugs, medicaments and biological substances; Z79.899 Other long term (current) drug therapy
CPT/HCPCS: 36415; 71045; 80053; 81001; 82140; 82272; 82810; 82948; 83605; 83690; 83735; 83880; 84100; 84145; 84439; 84443; 85025; 85610; 85730; 87077; 87081; 87088; 87186; 99285; A4615; A6449; C1751; G0378; J1644; J2270; J2274; J2405; J2543; J3010; J3490; J7030; J7040; J7042; P9047